=== PATIENT | male | born 1935 | race Caucasian/White ===

== ENCOUNTER → 2020-02-27 | Outpatient (CLI) | payer BC ==
[~2020-02-27] MED LIST: ASPI81TA85 PO; BIMA01SOL OP; COLA100C5 PO; DOXY1CAP60 PO; ELIQ5TAB PO; FAMO40TA3 PO; FINA5TAB2 PO; FLOM0.4C39 PO; FLUD0.1T PO; LORA-674 PO; LOSA25TA14 PO; OSTETAB2 PO; ROBI1CAP PO; TAMS1CAP17 PO
[2020-02-27 12:57] LABS: BASO % 0.7 % (0.0-1.0); EOS # 0.1 10^3/uL (0.0-0.5); EOS % 2.3 % (0.0-3.0); HEMATOCRIT 39.1 % (42.0-52.0); HEMOGLOBIN 13.1 g/dl (13.5-17.5); LYMPH # 1.1 10^3/uL (1.5-5.0); LYMPH % 19.9 % (24.0-44.0); MEAN CORPUSCULAR HEMOGLOBIN 31.4 pg (27.0-33.0); MEAN CORPUSCULAR HGB CONC 33.5 g/dl (32.0-36.5); MEAN CORPUSCULAR VOLUME 93.8 fl (80.0-96.0); MONO # 0.5 10^3/uL (0.0-0.8); MONO % 9.3 % (0.0-5.0); NEUTROPHILS # 3.9 10^3/uL (1.5-8.5); NEUTROPHILS % 67.6 % (36.0-66.0); PLATELET COUNT, AUTOMATED 193 10^3/uL (150-450); RED BLOOD COUNT 4.17 10^6/uL (4.30-6.10); WHITE BLOOD COUNT 5.7 10^3/uL (4.0-10.0)
[2020-02-27 13:32] LABS: ALBUMIN 3.5 GM/DL (3.2-5.2); ALT/SGPT 26 U/L (12-78); BILIRUBIN,TOTAL 0.9 MG/DL (0.2-1.0); BLOOD UREA NITROGEN 22 MG/DL (7-18); CALCIUM LEVEL 8.9 MG/DL (8.8-10.2); CARBON DIOXIDE LEVEL 28 MEQ/L (21-32); CHLORIDE LEVEL 106 MEQ/L (98-107); CREATININE FOR GFR 1.16 MG/DL (0.70-1.30); GLOMERULAR FILTRATION RATE > 60.0 (>35); GLUCOSE, FASTING 92 MG/DL (70-100); MAGNESIUM LEVEL 2.2 MG/DL (1.8-2.4); NT-PRO BNP 2388 PG/ML (<450); POTASSIUM SERUM 4.4 MEQ/L (3.5-5.1); SODIUM LEVEL 138 MEQ/L (136-145); TOTAL PROTEIN 6.7 GM/DL (6.4-8.2)
--- NOTE | 2020-02-27 15:43 | REP ---
Two-view chest: 02/27/2020. Indication: Dyspnea. Comparison: 02/04/2016. Findings: There is a right lower lobe opacity. Tiny right pleural effusion is present. There is no pneumothorax. Cardiac silhouette is normal in size. Impression: Right lower lobe pneumonia and tiny pleural effusion. Electronically Signed by Mono Garces DO 02/27/2020 03:34 P
== END ==
LOC: M WUC 11:41
PROVIDERS: ATTEND Physician Assistant
DX: J18.9 Pneumonia, unspecified organism (principal); J90 Pleural effusion, not elsewhere classified
CPT/HCPCS: 36415; 71046; 80053; 83735; 83880; 85025; U0003

== ENCOUNTER 2020-03-03 08:45 | Emergency (ER) | payer BC ==
[~2020-03-03] VITALS: Ht 172.7 cm; Wt 70.5 kg
[2020-03-03] MEDS ORDERED: TAMS1CAP17 PO (09:29)
[2020-03-03] MEDS ORDERED: LORA-674 PO (09:29)
[2020-03-03] MEDS ORDERED: FLUD0.1T PO (09:29)
[2020-03-03] MEDS ORDERED: DOXY1CAP60 PO (09:29)
[2020-03-03] MEDS ORDERED: ASPI81TA86 PO (09:29)
[2020-03-03] MEDS ORDERED: LOSA25TA14 PO (09:29)
[2020-03-03] MEDS ORDERED: FINA5TAB2 PO (09:29)
[2020-03-03] MEDS ORDERED: FAMO40TA3 PO (09:29)
[2020-03-03] MEDS ORDERED: ROBI1CAP PO (09:29)
[2020-03-03] MEDS ORDERED: BIMA01SOL OP (09:29)
[2020-03-03] MEDS ORDERED: OSTETAB2 PO (09:29)
[2020-03-03] MEDS ORDERED: FLOM0.4C39 PO (09:29)
[2020-03-03 09:32] LABS: BASO # 0.1 10^3/uL (0.0-0.2); EOS # 0.1 10^3/uL (0.0-0.5); EOS % 2.1 % (0.0-3.0); HEMATOCRIT 43.8 % (42.0-52.0); HEMOGLOBIN 14.3 g/dl (13.5-17.5); LYMPH # 1.3 10^3/uL (1.5-5.0); LYMPH % 18.7 % (24.0-44.0); MEAN CORPUSCULAR HEMOGLOBIN 30.7 pg (27.0-33.0); MEAN CORPUSCULAR HGB CONC 32.6 g/dl (32.0-36.5); MONO # 0.6 10^3/uL (0.0-0.8); NEUTROPHILS # 4.7 10^3/uL (1.5-8.5); NEUTROPHILS % 68.9 % (36.0-66.0); PLATELET COUNT, AUTOMATED 219 10^3/uL (150-450); RED BLOOD COUNT 4.66 10^6/uL (4.30-6.10); WHITE BLOOD COUNT 6.8 10^3/uL (4.0-10.0)
--- NOTE | 2020-03-03 10:35 | REP ---
Clinical: Flank pain and urinary retention. Technique: Real time bloom scale ultrasound examination using curved array transducer. Findings: The bilateral kidneys are normal in contour, size, echogenicity, and reniform shape. No hydronephrosis, nephrolithiasis, cystic or renal mass lesion. Right kidney measures 10.6 x 5.1 x 4.5 cm. Left kidney measures 10.0 x 4.9 x 6.1 cm. Impression: Normal renal ultrasound. Electronically Signed by Pepito Barnard MD 03/03/2020 10:27 A
--- NOTE | 2020-03-03 10:37 | REP ---
Clinical: Flank pain and urinary retention. Technique: Real time bloom scale and color ultrasound examination using curved array transducer. Findings: The bladder is normal in appearance and without wall thickening or mass lesion. Bilateral ureteral jets are identified. Prevoid bladder measures 291 ml. Postvoid images could not be obtained. The prostate gland is mildly enlarged measuring 5.7 x 5.0 x 4.8 cm (72 ml). Impression: Normal appearance to the bladder. Mild prostatomegaly. Electronically Signed by Pepito Barnard MD 03/03/2020 10:29 A
[2020-03-03] MEDS ORDERED: LIDOCAINE 2% 5ML JELLY UROJET TOP ONE (11:45)
[2020-03-03] MEDS ORDERED: METOPROLOL 5 MG/5 ML VIAL IV STA (12:24)
[2020-03-03 12:46] VITALS: BP 148/93
[2020-03-03] MEDS ORDERED: ELIQ5TAB PO (12:52)
[2020-03-03] MEDS ORDERED: APIXABAN 5 MG TAB (ELIQUIS) PO ONE (13:00)
--- NOTE | 2020-03-03 21:41 | ECGEPIP ---
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 Order Number: [id number] Reading MD: Earnest Kline Measurements Intervals [place] Rate: 96 P: SD: 0 QRS: 14 QRSD: 83 T: -11 QT: 353 QTc: 446 Interpretive Statements ATRIAL FLUTTER NONSPECIFIC T-WAVE ABNORMALITY NO PRIORS FOR COMPARISON Electronically Signed on 03-03-2020 21:40:44 EDT by Earnest Kline
== END 2020-03-03 13:16 | disposition home or self-care (01) ==
LOC: M ED 08:45
DX: R33.9 Retention of urine, unspecified (principal); N40.1 Benign prostatic hyperplasia with lower urinary tract symptoms; I48.91 Unspecified atrial fibrillation; Z79.899 Other long term (current) drug therapy; Z79.01 Long term (current) use of anticoagulants

== ENCOUNTER 2020-03-06 04:52 | Emergency (ER) | payer BC ==
[~2020-03-06] VITALS: Ht 172.7 cm; Wt 72.9 kg
[~2020-03-06 04:52] MED LIST changes: -COLA100C5 PO
[2020-03-06] MEDS ORDERED: COLA100C5 PO (06:59)
[2020-03-06 07:14] VITALS: BP 162/85
--- NOTE | 2020-03-06 08:00 | REP ---
KUB: Single view. History: Constipation. Findings: There is some formed stool in the ascending transverse and descending colon without colonic distension. No small bowel dilation is seen. Psoas margins and flank stripes are intact. There is some vascular calcification. No mass organomegaly is seen. Impression: Normal bowel gas pattern. Electronically Signed by Jean Cannon MD 03/06/2020 07:50 A
== END 2020-03-06 07:17 | disposition home or self-care (01) ==
LOC: M ED 04:52
DX: K59.00 Constipation, unspecified (principal)

== ENCOUNTER 2020-03-27 20:47 | Emergency (ER) | payer BC, MEDICARE ==
[~2020-03-27 20:47] MED LIST changes: +COLA100C5 PO
[2020-03-27 21:16] LABS: BASO # 0.1 10^3/uL (0.0-0.2); BASO % 0.9 % (0.0-1.0); EOS # 0.2 10^3/uL (0.0-0.5); EOS % 3.3 % (0.0-3.0); HEMATOCRIT 35.6 % (42.0-52.0); HEMOGLOBIN 12.1 g/dl (13.5-17.5); LYMPH # 1.3 10^3/uL (1.5-5.0); LYMPH % 18.5 % (24.0-44.0); MEAN CORPUSCULAR HEMOGLOBIN 30.8 pg (27.0-33.0); MEAN CORPUSCULAR VOLUME 90.6 fl (80.0-96.0); MONO # 0.4 10^3/uL (0.0-0.8); MONO % 6.3 % (0.0-5.0); NEUTROPHILS # 4.9 10^3/uL (1.5-8.5); NEUTROPHILS % 70.6 % (36.0-66.0); PLATELET COUNT, AUTOMATED 180 10^3/uL (150-450); RED BLOOD COUNT 3.93 10^6/uL (4.30-6.10)
[2020-03-27 21:29] LABS: INR 1.25; PROTHROMBIN TIME 15.4 SECONDS (11.8-14.0)
--- NOTE | 2020-03-27 21:42 | ECGEPIP ---
[facility] - ED Test Date: 2020-03-27 Pat Name: MIRNA MENON Department: Room: - Gender: Male Director Service: rosemary : 1935 Requested By: TIFF HADDAD Order Number: [id number] Reading MD: Savannah Ruelas Measurements Intervals [place] Rate: 82 P: TN: 0 QRS: 41 QRSD: 98 T: 44 QT: 402 QTc: 472 Interpretive Statements ATRIAL FIBRILLATION WITH ABERRANT CONDUCTION OR VENTRICULAR PREMATURE COMPLEXES ABNORMAL RHYTHM ECG Electronically Signed on 03-27-2020 21:42:00 EDT by Savannah Ruelas
[2020-03-27 21:49] LABS: ALBUMIN 3.2 GM/DL (3.2-5.2); BILIRUBIN,DIRECT 0.1 MG/DL (0.0-0.2); BILIRUBIN,TOTAL 0.7 MG/DL (0.2-1.0); CK-MB VALUE MASS 3.3 NG/ML (<3.6); MB/CK RELATIVE INDEX 1.51 (< OR =4); TOTAL PROTEIN 6.5 GM/DL (6.4-8.2); TROPONIN I 0.02 NG/ML (< 0.10)
[2020-03-27] MEDS ORDERED: METOCLOPRAMIDE INJ 10MG/2ML VIAL (J2765 PER 1) IV ONE (22:00)
[2020-03-27] MEDS ORDERED: NS 500 ML IV ONE (22:00)
[2020-03-27] MEDS ORDERED: ISOVUE-370 76% 100ML VIAL As Ordered ONE (23:25)
--- NOTE | 2020-03-27 23:54 | REPVR ---
PROCEDURE INFORMATION: Exam: CT Abdomen And Pelvis With Contrast Exam date and time: 03/27/2020 11:49 PM Age: 84 years old Clinical indication: Abdominal pain; Generalized; Prior surgery; Surgery date: Post-operative (0-2 days); Surgery type: Cystoscopy TECHNIQUE: Imaging protocol: Computed tomography of the abdomen and pelvis with intravenous contrast. Radiation optimization: All CT scans at this facility use at least one of these dose optimization techniques: automated exposure control; mA and/or kV adjustment per patient size (includes targeted exams where dose is matched to clinical indication); or iterative reconstruction. Contrast material: ISOVUE 370; Contrast volume: 100 ml; Contrast route: INTRAVENOUS (IV); COMPARISON: BLADDER (LIMITED PELVIC) US 03/03/2020 10:08 AM FINDINGS: Lungs: Interlobular septal thickening at the lung bases. Miniscule right pleural effusion. Liver: Liver appears normal with no focal abnormality. Gallbladder and bile ducts: Gallbladder is present and shows no evidence of gallstone. Pancreas: Pancreas appears normal. No focal mass or peripancreatic inflammation. Spleen: Spleen appears homogeneous without focal mass. Adrenals: Adrenal glands are normal in appearance. Kidneys and ureters: Kidneys appear normal, with no stone, solid mass or hydronephrosis. Stomach and bowel: Stomach is distended with ingested material and fluid. No evidence of small bowel obstruction. No evidence of acute diverticulitis. Appendix: Normal caliber appendix is identified, with no adjacent inflammation. Intraperitoneal space: No pneumoperitoneum. Vasculature: No aortic aneurysm. Main portal and splenic veins enhance normally. Lymph nodes: No enlarged lymph nodes. Bladder: Bladder is somewhat thick-walled, asymmetric to the right of midline. Reproductive: Prostate gland is diffusely enlarged. Bones/joints: Bony structures are normal except for lumbar spine degenerative disc changes. Soft tissues: Unremarkable. IMPRESSION: 1. Irregular thick-walled appearance of the bladder. Apparently the patient underwent a recent cystoscopy. 2. No acute bowel process or evidence of obstructive uropathy. 3. Mild pulmonary edema with small right pleural effusion Electronically signed by: Daren Mack On 03/27/2020 23:54:24 PM
[2020-03-28 01:55] LABS: CK-MB VALUE MASS 3.7 NG/ML (<3.6); MB/CK RELATIVE INDEX 1.81 (< OR =4); TROPONIN I 0.02 NG/ML (< 0.10)
[2020-03-28 02:02] VITALS: BP 175/85
--- NOTE | 2020-03-28 06:38 | ED PDOC ---
Post-Departure Follow-Up certified letter sent to pt re formal read of ct abd/p - need fu. please obtain pcp/cardiology name frompt and fax for fu Migel Burk MD Mar 28, 2020 06:38
--- NOTE | 2020-03-28 16:04 | ECGEPIP ---
[facility] - ED Test Date: 2020-03-28 Pat Name: MIRNA MENON Department: Room: - Gender: Male Um Specialist: SEFERINO : 1935 Requested By: TIFF HADDAD Order Number: [id number] Reading MD: Migel Sigala Measurements Intervals [place] Rate: 86 P: NM: 0 QRS: 46 QRSD: 93 T: 29 QT: 390 QTc: 467 Interpretive Statements ATRIAL FIBRILLATION ABNORMAL RHYTHM ECG NONSPECIFIC ST T WAVE CHANGES LOW QRS VOLTAGE LIMB LEADS CW 03/27/[address] T WAVE CHANGES Electronically Signed on 03-28-2020 16:04:23 EDT by Migel Sigala
--- NOTE | 2020-03-29 08:13 | REP ---
AP PORTABLE CHEST: 03/27/2020. CLINICAL HISTORY: Chest pain. COMPARISON: 02/27/2020 FINDINGS: The lung schaefer are adequately inflated. The CP angles show no gross effusion. There are heavier basilar markings but the patchy infiltrate in the right CP angle on last month's exam is no longer present. There is no dense consolidation with air bronchograms. Heart size unchanged. There is no vascular redistribution or pulmonary edema. The aorta is mildly tortuous but without aneurysm. Airway intact. Bones show some degenerative changes in the spine without destructive lesion. IMPRESSION: 1. Some basilar fibrotic changes without definite infiltrate, effusion, cardiomegaly, or edema. There is clearing of the right CP angle opacity seen on the previous study suggesting infiltrate. Electronically Signed by Aravind Zurita MD 03/29/2020 08:46 A
== END 2020-03-28 04:18 | disposition home or self-care (01) ==
LOC: M ED 20:47 → EDBD 20:47 → M ED 03-28 04:18
DX: I48.91 Unspecified atrial fibrillation (principal); I95.89 Other hypotension; Z79.899 Other long term (current) drug therapy; Z79.01 Long term (current) use of anticoagulants
CPT/HCPCS: 71045; 74177; 80047; 80076; 82550; 82553; 83690; 83880; 84484; 85025; 85610; 93005; 93041; 94760; 96361; 96374; 99285; J2765; Q9967

== ENCOUNTER → 2021-03-17 | Outpatient (CLI) | payer MEDICARE ==
[~2021-03-17] MED LIST changes: -ASPI81TA85 PO; +ASPI81TA86 PO
--- NOTE | 2021-03-17 09:50 | REP ---
INDICATION: PAIN COMPARISON: None. TECHNIQUE: Internal rotation, external rotation, and Y view. FINDINGS: Essentially age-related degenerative changes are appreciated with subtle cortical irregularity at the acromioclavicular joint. There is subtle increased sclerosis to the calcified glenoid rim with possible small fractured osteophyte at the 1 o'clock position. The subacromial space is decreased to approximately 7.5 mm. No evidence for acute fracture or dislocation. IMPRESSION: Essentially age-related degenerative changes as described above. <Electronically signed by Pepito Barnard > 03/17/21 [id number]
== END ==
LOC: M WUC 09:24
PROVIDERS: ATTEND Nurse Practitioner Family
DX: M25.512 Pain in left shoulder (principal)

== ENCOUNTER 2021-06-22 10:23 | Emergency (ER) | payer MEDICARE ==
[~2021-06-22] VITALS: Ht 172.7 cm; Wt 66.6 kg
[2021-06-22] MEDS ORDERED: PANT40TA29 PO (12:34)
[2021-06-22] MEDS ORDERED: LIDOCAINE 2% 5ML JELLY UROJET TOP ONE (13:00)
[2021-06-22 13:02] LABS: BLOOD UREA NITROGEN 22 MG/DL (7-18); CALCIUM LEVEL 9.8 MG/DL (8.8-10.2); CARBON DIOXIDE LEVEL 28 MEQ/L (21-32); CHLORIDE LEVEL 107 MEQ/L (98-107); CREATININE FOR GFR 1.08 MG/DL (0.70-1.30); GLOMERULAR FILTRATION RATE > 60.0 (>35); GLUCOSE, FASTING 104 MG/DL (70-100); POTASSIUM SERUM 4.2 MEQ/L (3.5-5.1); SODIUM LEVEL 139 MEQ/L (136-145)
[2021-06-22 13:33] VITALS: BP 158/92
== END 2021-06-22 13:50 | disposition home or self-care (01) ==
LOC: M ED 10:23
DX: R33.9 Retention of urine, unspecified (principal); I48.91 Unspecified atrial fibrillation; Z87.891 Personal history of nicotine dependence; Z79.899 Other long term (current) drug therapy; Z79.01 Long term (current) use of anticoagulants

== ENCOUNTER → 2022-03-30 | Outpatient (REF) | payer MEDICARE ==
[~2022-03-30] MED LIST changes: -DOXY1CAP60 PO; +DOXY50CA51 PO; +LOSA25TA13 PO; -LOSA25TA14 PO; +PANT40TA29 PO
[2022-03-30 17:54] LABS: FOLATE 13.2 NG/ML
== END ==
LOC: M LAB REF 16:23
PROVIDERS: ATTEND Internal Medicine
DX: R41.3 Other amnesia (principal)